=== PATIENT | female | born 2000 | race Caucasian/White ===

== ENCOUNTER 2020-12-14 16:03 | Inpatient (IN) | payer MEDICAID, SELFPAY ==
[~2020-12-14] VITALS: Ht 160 cm; Wt 61.7 kg
[2020-12-14 16:58] VITALS: BP 119/72
--- NOTE | 2020-12-14 17:25 | NUR ---
Pt taken to bed 7.
[2020-12-14 17:40] LABS: BASOPHILS # (AUTO) 0.1 K/uL (0.00-0.22); BASOPHILS % (AUTO) 0.9 % (0.0-2.0); EOSINOPHILS # (AUTO) 0.2 K/uL (0-0.4); EOSINOPHILS % (AUTO) 1.8 % (0.0-4.0); HEMATOCRIT 37.1 % (36-48); HEMOGLOBIN 11.5 g/dL (12.0-16.0); LYMPHOCYTES # (AUTO) 2.3 K/uL (2.5-16.5); LYMPHOCYTES % (AUTO) 20.6 % (20.5-51.1); MEAN CORPUSCULAR HEMOGLOBIN 23 pg (27-31); MEAN CORPUSCULAR HGB CONC 31 g/dL (33-37); MEAN CORPUSCULAR VOLUME 74.4 fL (80-94); MONOCYTES # (AUTO) 0.8 K/uL (0.8-1.0); MONOCYTES % (AUTO) 7.4 % (1.7-9.3); NEUTROPHILS # (AUTO) 7.6 K/uL (1.8-7.7); NEUTROPHILS % (AUTO) 69.3 % (42.2-75.2); PLATELET COUNT (AUTO) 417 K/uL (140-450); RED BLOOD CELL COUNT(AUTO) 4.98 MIL/uL (4.20-5.40); RED CELL DISTRIBUTION WIDTH 19.7 % (11.6-13.7)
[2020-12-14] MEDS ORDERED: MORPHINE SULFATE 2 MG/ML SYR IVP ONE ×2 (17:40→21:05)
[2020-12-14] MEDS ORDERED: NACL 0.9% 1,000 ML IV ONE (17:40)
[2020-12-14] MEDS ORDERED: ONDANSETRON 4 MG/2 ML VIAL IVP ONE (17:40)
[2020-12-14 17:54] LABS: ALBUMIN 4.2 g/dL (3.4-5.0); ANION GAP 14.7 (8-16); CARBON DIOXIDE 25.4 mmol/L (21-32); CREATININE 0.9 mg/dL (0.6-1.3); POTASSIUM 3.1 mmol/L (3.5-5.1); TOTAL BILIRUBIN 0.3 mg/dL (0.0-1.0)
--- NOTE | 2020-12-14 19:14 | NUR ---
Pt report given to BAN RN. Transfer of care at this time.
--- NOTE | 2020-12-14 19:15 | NUR ---
Received report from ALEX Wolfe for continuity of care.
--- NOTE | 2020-12-14 19:20 | NUR ---
20 Y/O FEMALE C/O RLQ ABDOMINAL PAIN, NAUSEA, VOMITING, AND DIARRHEA X1 WEEK. PT HAS ILEOSTOMY, FULL COLECTOMY. PATIENT HAS SOME GENERALIZED BODY SWELLING. PATIENT COMPLAINS OF PAIN OF 8/10 IN THE ABDOMEN THAT FEELS LIKE BURNING AND SQUEEZING. AAOX4. VSS. PMH: CROHNS ALLERGIES: PCN, SULFA
[2020-12-14] MEDS ORDERED: LIDOCAINE MPF 1% 5 ML ONE (19:24)
[2020-12-14] MEDS ORDERED: LIDOCAINE MPF 1% 10 MG/ML VIAL INJ ONE (19:25)
--- NOTE | 2020-12-14 20:14 | NUR ---
PATIENT TO RADIOLOGY VIA W/C
[2020-12-14] MEDS ORDERED: POTASSIUM CHLORIDE 10 MEQ TABER PO ONE (20:45)
--- NOTE | 2020-12-14 20:54 | NUR ---
PATIENT C/O PAIN OF 8/10 IN THE ABDOMEN EVEN WITH MORPHINE. UNRELIEVED. ERMD MADE AWARE
[2020-12-14] MEDS ORDERED: MORPHINE SULFATE 4 MG/ML SYR IVP ONE (23:05)
[2020-12-14] MEDS ORDERED: methylPREDNISolone SS 125 MG/2 ML VIAL IVP ONE (23:05)
--- NOTE | 2020-12-14 23:09 | NUR ---
SWABBED PATIENT. COLLECTED MAYNOR. SENT TO LAB, RECEIVED BY CEASAR, LAB
[2020-12-14] MEDS ORDERED: diphenhydrAMINE 50 MG/ML VIAL IVP ONE (23:35)
--- NOTE | 2020-12-15 00:38 | NUR ---
Patient will be admitted to care of [facility]. Admited to Telemetry. Will go to room 104B. Belongings list completed. Report to ALEX Bell.
[2020-12-15 01:15] VITALS: BP 115/62
--- NOTE | 2020-12-15 01:15 | NUR ---
Admitted from ER TO TELEMETRY UNIT , with chief complaint of ABDOMINAL PAIN, N/V, DIARRHEA FOR 5 DAYS, 20 y/o ,Female, Cooperative, A/OX4. RESPIRATION EVEN AND UNLABORED. IV SALINE LOCK AT THE RIGHT CHEST G24, PATENT AND INTACT. AMBULATORY TO THE , INDEPENDENT. WITH ILEOSTOMY DRAINING LIQUID STOOLS MINIMAL AMOUNT. HEAD TO TOE ASSESSMENT DONE WITH CHARGE NURSE ROSA, SKIN IS INTACT. PAIN IN THE ABDOMEN 2/10, WAS MEDICATED WITH MORPHINE IN ER. WILL MEDICATE PER MD ORDER. oriented to call light, bed, phone,television, bathroom, smoking policy, visiting hours, procedures, ID bracelet on. Belongings list checked.
[2020-12-15] MEDS: MORPHINE SULFATE 2 MG/ML SYR IVP PRN ×3 (02:15→06:34)
--- NOTE | 2020-12-15 02:15 | NUR ---
COMPLAINED OF ABDOMINAL PAIN 03/05, MEDICATED WITH MORPHINE 1 MG. IVP BY CHARGE NURSE ROSA.
--- NOTE | 2020-12-15 03:10 | NUR ---
COMPLAINED THAT THE MORPHINE GIVEN IN ER DOES NOT WORK FOR HER, WANTS DILAUDID. MESSAGED DR. FIERRO REGARDING PATIENT REQUEST.
--- NOTE | 2020-12-15 03:24 | NUR ---
Patient's Plan of Care was discussed and reviewed with TOP STITCHER: MARTA MARTIN.
--- NOTE | 2020-12-15 03:36 | NUR ---
COMPLAINED OF ITCHINESS, STATED THE MORPHINE MAKES ME ITCHY. SEND MESSAGE TO DR. FIERRO.
[2020-12-15 04:00] VITALS: BP 110/65
--- NOTE | 2020-12-15 07:00 | NUR ---
FOLLOW UP WITH PATIENT COMPLAINT TO DR. FIERRO, AWAITING CALL. PATIENT CONDITION REMAIN STABLE. WILL ENDORSE TO AM SHIFT NURSE FOR CONTINUITY OF CARE.
[2020-12-15 07:03] LABS: ALBUMIN 3.7 g/dL (3.4-5.0); ANION GAP 13.9 (8-16); CARBON DIOXIDE 23.3 mmol/L (21-32); CREATININE 0.7 mg/dL (0.6-1.3); POTASSIUM 4.2 mmol/L (3.5-5.1); TOTAL BILIRUBIN 0.4 mg/dL (0.0-1.0)
[2020-12-15 07:09] LABS: BASOPHILS % (AUTO) 0.1 % (0.0-2.0); EOSINOPHILS % (AUTO) 0.1 % (0.0-4.0); HEMATOCRIT 32.9 % (36-48); HEMOGLOBIN 10.2 g/dL (12.0-16.0); LYMPHOCYTES # (AUTO) 0.5 K/uL (2.5-16.5); LYMPHOCYTES % (AUTO) 3.8 % (20.5-51.1); MEAN CORPUSCULAR HEMOGLOBIN 23 pg (27-31); MEAN CORPUSCULAR HGB CONC 31 g/dL (33-37); MEAN CORPUSCULAR VOLUME 73.6 fL (80-94); MONOCYTES # (AUTO) 0.1 K/uL (0.8-1.0); MONOCYTES % (AUTO) 0.8 % (1.7-9.3); NEUTROPHILS # (AUTO) 11.3 K/uL (1.8-7.7); NEUTROPHILS % (AUTO) 95.2 % (42.2-75.2); PLATELET COUNT (AUTO) 350 K/uL (140-450); RED BLOOD CELL COUNT(AUTO) 4.47 MIL/uL (4.20-5.40); RED CELL DISTRIBUTION WIDTH 19.4 % (11.6-13.7); WHITE BLOOD COUNT (AUTO) 11.9 K/uL (4.5-11.0)
--- NOTE | 2020-12-15 07:30 | NUR ---
RECEIVED PT AAOX4. NO SOB NOTED. NO C/O PAIN AT THIS TIME. INSTRUCTED PT TO CALL FOR ASSISTANCE, CALL LIGHT WITHIN REACH, PT VERBALIZED UNDERSTANDING.
[2020-12-15 08:00] VITALS: BP 113/68
[2020-12-15] MEDS ORDERED: MORPHINE SULFATE 2 MG/ML SYR IVP PRN (08:15)
[2020-12-15] MEDS ORDERED: ACETAMINOPHEN 325 MG TAB PO PRN (08:15)
[2020-12-15] MEDS ORDERED: DOCUSATE SODIUM 100 MG GELCAP PO PRN (08:15)
--- NOTE | 2020-12-15 08:53 | NUR ---
PATIENT HAS BEEN SCREENED AND CATEGORIZED HIGH NUTRITION RISK. PATIENT WILL BE SEEN WITHIN 1-2 DAYS OF ADMISSION. 12/15/20-12/16/[address]
[2020-12-15 09:58] LABS: CHOL/HDL RATIO 2.3 (1-4.5); FREE T4 (FREE THYROXINE) 1.08 ng/dL (0.76-1.46); PHOSPHORUS 3.7 mg/dL (2.5-4.9); THYROID STIMULATING HORMONE 0.35 uIU/mL (0.34-3.74)
--- NOTE | 2020-12-15 10:00 | NUR ---
PT ABLE TO CLEAN AND CHANGE HER OWN ILEOSTOMY BAG, DRAINED APPROXIMATELY 100 MLS OF BROWN LIQUID STOOLS.
[2020-12-15] MEDS: NACL 0.9% 1,000 ML IV SCH (10:54)
[2020-12-15] MEDS: HYDROmorphone 1 MG/ML AMP IVP PRN ×3 (11:09→23:11)
--- NOTE | 2020-12-15 11:47 | NUR ---
URINE SPECIMEN COLLECTED AND SENT TO LAB FOR UDS.
[2020-12-15 12:00] VITALS: BP 103/54
--- NOTE | 2020-12-15 12:05 | NUR ---
PT TOLERATING CLEAR LIQUIDS WELL. NO NAUSEA NAD VOMITING NOTED.
[2020-12-15 13:25] LABS: BARBITURATE, URINE NEGATIVE ng/ml (NEG <=200); BENZODIAZEPINE, URINE POSITIVE ng/mL (NEG <=200); CANNABINOID, URINE NEGATIVE ng/mL (NEG <=50); COCAINE, URINE NEGATIVE ng/mL (NEG <=300); OPIATE, URINE POSITIVE ng/mL (NEG <=2000); PHENCYCLIDINE SCREEN,URINE NEGATIVE ng/mL (NEG <=25)
--- NOTE | 2020-12-15 14:13 | NUR ---
12/15/20 RD INITIAL ASSESSMENT COMPLETED PLEASE REFER TO NUTRITION ASSESSMENT UNDER CARE ACTIVITY FOR ESTIMATED NUTRITIONAL NEEDS. 1. CONTINUE CLEAR LIQUID DIET TOLERATED 2. GRADUALLY ADVANCE TO LOW FIBER DIET 3. RECOMMEND ENSURE CLEAR TID 4. PROVIDED NUTRITION EDUCATION FOR CROHN'S DISEASE 5. RD TO FOLLOW-UP 3-5 DAYS, MODERATE RISK JOSIE CABELLO RD
--- NOTE | 2020-12-15 14:46 | NUR ---
DC PLANNIN YRS OLD FEMALE PATIENT WAS ADMITTED FROM HOME WITH A DX OF CROHN'S FLAIR PT HAS A HX OF CHRONS' DISEASE AND COLOSTOMY. PT RECENTLY DISCHARGED FROM [facility] WORK UP WAS DONE THERE WHICH INCLUDED EGD AND CT ABD/ PELVIS. ADMINISTERED IVF, PAIN MEDS AND CONTINUE HOME MEDS. DC PLAN TO GO HOME AND FOLLOW UP WITH PCP OUT PATIENT. CM TO FOLLOW Addendum: 12/16/20 at 1345 by Berenice Wolff RN DC PLANNING: CALLED DEEJAY CORDERO [phone] LEFT A MESSAGE . CM TO FOLLOW Addendum: 12/20/20 at 1022 by Berenice Wolff RN LATE ENTRY 12/19/18 1400 CALLED DEEJAY NORTON SPOKE WITH LINDSEY CHOE UPDATED PT'S CLINICAL AND AWAITING FOR GI RECOMMENDATIONS, SBFT ORDERED. ON PAIN MEDS. AUTH # [id number]. DC PLAN AWAITING FOR SBFT RESULT AND GI RECOMMENDATION. CM TO FOLLOW Addendum: 12/20/20 at 1028 by Berenice Wolff RN DC PLANNING: SBFT NEGATIVE. RIGHT DIVERTING ILEOSTOMY SOFT TISSUES APPEAR NORMAL. PT REFUSED HOME HEALTH, STATED SHE KNOWS HOW TO TAKE CARE OF ILEOSTOMY, DOESN'T NEED ANY HELP AND SHE HAS ALL THE SUPPLIES. STABLE FOR DISCHARGE.
[2020-12-15] MEDS: predniSONE 10 MG TAB PO SCH (15:37)
--- NOTE | 2020-12-15 15:55 | NUR ---
PT RESTING. NO COMPLAINTS MADE. ENDORSED TO DES FOR CONTINUITY OF CARE.
[2020-12-15 16:00] VITALS: BP 109/58
[2020-12-15] MEDS: METOCLOPRAMIDE 10 MG TAB PO SCH (16:30)
[2020-12-15 17:11] LABS: PROTHROMBIN TIME 9.7 secs (10.8-13.4)
--- NOTE | 2020-12-15 19:25 | NUR ---
GAVE REPORT TO REEL STRIPPER NURSE FOR CONTINUITY OF CARE. WILL CONTINUE TO MONITOR.
--- NOTE | 2020-12-15 19:27 | NUR ---
RECEIVED REPORT FROM KAILEE RN. PT AAOX4, WATCHING TV AT PRESENT. NAD NOTED.
[2020-12-15] MEDS: HYDROcodone/APAP 5/325 MG 1 TAB TAB PO PRN (19:56)
[2020-12-15 20:30] VITALS: BP 113/66
[2020-12-15] MEDS: ONDANSETRON 4 MG/2 ML VIAL IVP PRN (23:09)
--- NOTE | 2020-12-15 23:30 | NUR ---
PT W/ REQUEST FOR PAIN MED, PAIN 8/10, IV ZOFRAN GIVEN, IV DILAUDID ATTEMPTED, IV SITE W/ NOTED LEAKAGE, IV SITE INFILTRATED. IV FLUIDS STOPPED, IV CATH D/C'D, 24G CATH REMOVED INTACT FROM R UPPER CHEST WALL. CHARGE NURSE NOTIFIED TO CALL ED MD FOR NEW IV PLACEMENT, PT IS A DIFFICULT STICK. Dx CROHN'S FLAIR UP
[2020-12-15] MEDS: ZOLPIDEM 5 MG TAB PO PRN (23:31)
[2020-12-16] VITALS: BP 112/65
--- NOTE | 2020-12-16 00:09 | NUR ---
NEW IV INSERTED TO LEFT UPPER ARM, 20G, BY SUPERVISOR LAMP SHADES. PT TOLERATED WELL. REQUESTING PAIN MED, DUE TO IV SITE INFILTRATION STATING "I DIDN'T GET ANY OF MY MEDICATION, I AM STILL IN PAIN."
[2020-12-16] MEDS: HYDROmorphone 1 MG/ML AMP IVP PRN ×5 (00:44→19:16)
--- NOTE | 2020-12-16 03:00 | NUR ---
ON ROUNDS PT ASLEEP, VERBALIZED NO C/O PAIN OR DISCOMFORT. RESP REG NON-LABORED.
[2020-12-16 05:20] VITALS: BP 111/58
--- NOTE | 2020-12-16 05:25 | NUR ---
Asymptomatic. VS WNL 111/59, P65, PO2 99%, RR 16 NO RESP DISTRESS. VOICED NO C/O MALAISE, LIGHTHEADEDNESS OR DIZZINESS.
[2020-12-16] MEDS: NACL 0.9% 1,000 ML IV SCH ×2 (06:15→20:25)
[2020-12-16] MEDS: METOCLOPRAMIDE 10 MG TAB PO SCH ×3 (06:16→17:00)
[2020-12-16] MEDS: ONDANSETRON 4 MG/2 ML VIAL IVP PRN (07:05)
--- NOTE | 2020-12-16 07:10 | NUR ---
REPORT TO AM RN. PT MEDICATED FOR PAIN AT 0700. RESTING QUIETLY. ASLEEP AT INTERVALS. NAD NOTED.
[2020-12-16 07:17] LABS: ANION GAP 12.1 (8-16); CARBON DIOXIDE 25.9 mmol/L (21-32); CREATININE 0.6 mg/dL (0.6-1.3)
--- NOTE | 2020-12-16 07:30 | NUR ---
RECEIVED REPORT FROM TRAVEL SERVICE CONSULTANT RN. AOX4, VERBAL, ABLE TO MAKE NEEDS KNOWN. RESPIRATION EVEN AND UNLABORED. IV LFA 20G, PATENT AND INTACT. AMBULATORY, INDEPENDENT. WITH ILEOSTOMY DRAINING LIQUID STOOLS MINIMAL AMOUNT. SKIN IS INTACT. CALL LIGHT WITHIN REACH. WILL CONTINUE TO MONITOR
[2020-12-16 08:00] VITALS: BP 100/64
--- NOTE | 2020-12-16 08:45 | NUR ---
WITH C/O ABD PAIN 11/03. NORCO GIVEN ORDERED. OTHER DUE MEDS GIVEN
[2020-12-16] MEDS: predniSONE 10 MG TAB PO SCH (09:12)
[2020-12-16 09:13] LABS: PHOSPHORUS 3.9 mg/dL (2.5-4.9)
[2020-12-16] MEDS: HYDROcodone/APAP 5/325 MG 1 TAB TAB PO PRN ×2 (09:17→18:27)
--- NOTE | 2020-12-16 11:20 | NUR ---
PT RESTING IN BED. NO C/O PAIN, NO SOB
--- NOTE | 2020-12-16 13:10 | NUR ---
WITH C/O ABD PAIN 01/03, DILAUDID GIVEN ORDERED
--- NOTE | 2020-12-16 15:42 | NUR ---
PT IN BED, NO C/O PAIN, NO SOB.
[2020-12-16 16:00] VITALS: BP 11/59
[2020-12-16 17:45] LABS: BASOPHILS % (AUTO) 0.4 % (0.0-2.0); EOSINOPHILS % (AUTO) 0.3 % (0.0-4.0); HEMATOCRIT 33.3 % (36-48); HEMOGLOBIN 10.3 g/dL (12.0-16.0); LYMPHOCYTES # (AUTO) 1.3 K/uL (2.5-16.5); LYMPHOCYTES % (AUTO) 13.7 % (20.5-51.1); MEAN CORPUSCULAR HEMOGLOBIN 23 pg (27-31); MEAN CORPUSCULAR HGB CONC 31 g/dL (33-37); MEAN CORPUSCULAR VOLUME 74.1 fL (80-94); MONOCYTES # (AUTO) 0.6 K/uL (0.8-1.0); MONOCYTES % (AUTO) 6.6 % (1.7-9.3); NEUTROPHILS # (AUTO) 7.6 K/uL (1.8-7.7); PLATELET COUNT (AUTO) 364 K/uL (140-450); RED BLOOD CELL COUNT(AUTO) 4.49 MIL/uL (4.20-5.40); RED CELL DISTRIBUTION WIDTH 19.2 % (11.6-13.7); WHITE BLOOD COUNT (AUTO) 9.6 K/uL (4.5-11.0)
--- NOTE | 2020-12-16 17:53 | NUR ---
AWAKE IN BED, ABD PAIN 3/10 TOLERABLE, NO RESPIRATORY DISTRESS
--- NOTE | 2020-12-16 19:35 | NUR ---
RECEIVED REPORT FROM AM SHIFT NURSE. PATIENT IS AAOX4 IN BED RESTING. NO S/S OF RESPIRATORY DISTRESS. DENIES PAIN CALL LIGHT WITHIN REACH. IVF OF NS INFUSING AT 50 ML/HR ON THE SAM. ILEOSTOMY ON THE LEFT MID ABDOMEN. WILL CONTINUE TO MONITOR.
[2020-12-16] MEDS: ZOLPIDEM 5 MG TAB PO PRN (20:58)
[2020-12-17] VITALS: BP 101/58
[2020-12-17] MEDS: HYDROmorphone 1 MG/ML AMP IVP PRN ×4 (01:56→18:28)
[2020-12-17] MEDS: NACL 0.9% 1,000 ML IV SCH ×2 (03:35→16:17)
[2020-12-17] MEDS: ONDANSETRON 4 MG/2 ML VIAL IVP PRN (06:19)
--- NOTE | 2020-12-17 07:25 | NUR ---
RECEIVED REPORT FROM PRODUCTION SUPPORT DEVELOPER NURSE FOR CONTINUITY OF CARE. PT IS AWAKE AND ALERT, A&OX4. PT IS ON RA WITH BREATHING UNLABORED. PT IS AMBULATORY INDEPENDENTLY. SKIN IS INTACT, DRY AND WARM. COLOSTOMY BAG IN PLACE ON RIGHT ABDOMEN. IV LEFT UPPER ARM 20 GAUGE INFUSING AT 50 ML/HR. PT IS STABLE. PT STATES 3/10, TOLERABLE. CONTACT PRECAUTIONS PENDING C DIFF RESULTS. CALL LIGHT WITH IN REACH. ALL SAFETY MEASURE IN PLACE. WILL CONTINUE TO MONITOR.
[2020-12-17] MEDS: METOCLOPRAMIDE 10 MG TAB PO SCH ×3 (07:30→16:07)
--- NOTE | 2020-12-17 07:35 | NUR ---
ENDORSED TO AM NURSE FOR CONTINUITY OF CARE. PT IS STABLE.
--- NOTE | 2020-12-17 07:45 | NUR ---
REGLAN NOT GIVEN DUE TO ZOFRAN GIVEN AT 0619.
[2020-12-17 08:30] VITALS: BP 95/54
--- NOTE | 2020-12-17 08:30 | NUR ---
REPORT RECEIVED FROM MAXIME RN, PT AAOX4, SPEAKS CLEARLY, RESP EVEN UNLABORED ON RA, SKIN WARM DRY COLOR WNL, CAP REFILL <3SEC, PIV 20G TO L UA NS AT 50ML/HR, SITE WNL, ABD SOFT, NON DISTENDED, ILEOSTOMY BAG IN PLACE, WITH SML AMT OF BROWN STOOL, PT REPORTS ABD PAIN 01/03, WILL MEDICATE, PLAN OF CARE REVIEWED, ALL SAFETY MEASURES IN PLACE, WILL CONTINUE TO MONITOR.
--- NOTE | 2020-12-17 08:30 | NUR ---
ENDORSED PT TO ALEX ROSE FOR CONTINUITY OF CARE. PT IS STABLE. PLAN OF CARE DISCUSSED.
--- NOTE | 2020-12-17 08:37 | NUR ---
DR FARFAN AT BEDSIDE FOR EVAL
[2020-12-17] MEDS: predniSONE 10 MG TAB PO SCH (08:47)
[2020-12-17] MEDS: HYDROcodone/APAP 5/325 MG 1 TAB TAB PO PRN ×3 (08:52→20:53)
--- NOTE | 2020-12-17 08:54 | NUR ---
PT REPORTS 01/03 ABD PAIN, MEDICATED WITH NORCO, DILAUDID NOT DUE UNTIL 1230, PT DENIES N/V, PREDNISONE GIVEN SCHEDULED, JOHN WELL, PT DENIES ANY OTHER NEEDS AT THIS TIME, CALL PACKER AT BEDSIDE
[2020-12-17] MEDS ORDERED: KETOROLAC 15 MG/ML VIAL IVP SCH (09:20)
[2020-12-17] MEDS ORDERED: DICYCLOMINE HCL LIQUID 10 MG/5 ML UDC PO SCH (09:20)
--- NOTE | 2020-12-17 12:30 | NUR ---
C/O ABD PAIN 810, DILAUDID GIVEN PER PRN ORDER.
[2020-12-17] MEDS: KETOROLAC 15 MG/ML VIAL IVP SCH ×2 (13:00→20:50)
[2020-12-17] MEDS: DICYCLOMINE HCL LIQUID 10 MG/5 ML UDC PO SCH ×3 (13:00→20:47)
--- NOTE | 2020-12-17 13:30 | NUR ---
PT REPORTS FEEDING BETTER, RESTING QUIETLY IN NO ACUTE DISTRESS, DENIES N/V, NO EMESIS TODAY
[2020-12-17 16:00] VITALS: BP 102/62
[2020-12-17] MEDS ORDERED: CRUSHER, PILL MC ONE (16:05)
--- NOTE | 2020-12-17 16:14 | NUR ---
PT REFUSES BENTYL, STATES IT DID NOT HELP LAST TIME.
--- NOTE | 2020-12-17 16:15 | NUR ---
C/O RETURNING ABD PAIN, 01/03, JOSEMANUELID NOT DUE UNTIL 1829, PT AGREES TO TAKE NORCO FOR NOW.
--- NOTE | 2020-12-17 18:28 | NUR ---
PATIENT COMPLAINED OF 8/10 ABD PAIN. ADMINISTERED PRN PAIN MEDICATIONS PER MD ORDERED.
--- NOTE | 2020-12-17 19:33 | NUR ---
RECEIVED REPORT FROM AM RN. PATIENT IN BED RESTING, NO SOB NOTED. IVF OF NS AT 50 ML/HR INFUSING WELL ON THE RIGHT UPPER ARM. CALL LIGHT WITHIN REACH. WILL CONTINUE TO MONITOR.
[2020-12-17] MEDS: ZOLPIDEM 5 MG TAB PO PRN (20:58)
--- NOTE | 2020-12-17 20:59 | NUR ---
meds given as ordered.
[2020-12-18] VITALS: BP 109/70
[2020-12-18] MEDS: NACL 0.9% 1,000 ML IV SCH ×2 (00:11→20:25)
[2020-12-18] MEDS: HYDROmorphone 1 MG/ML AMP IVP PRN ×4 (00:13→19:39)
--- NOTE | 2020-12-18 03:38 | NUR ---
PATIENT IS SLEEPING. NO SOB NOTED. CALL LIGHT WITHIN REACH.
[2020-12-18] MEDS: KETOROLAC 15 MG/ML VIAL IVP SCH ×3 (05:00→20:26)
[2020-12-18] MEDS: METOCLOPRAMIDE 10 MG TAB PO SCH ×3 (07:00→17:04)
--- NOTE | 2020-12-18 07:10 | NUR ---
RECEIVE REPORT FROM ANVIL WORKER NURSE FOR CONTINUITY OF CARE. PATIENT AWAKE. BREATHING IS EVEN AND UNLABORED. ALL SAFETY MEASURES IN PLACE. WILL CONTINUE TO MONITOR.
--- NOTE | 2020-12-18 07:13 | NUR ---
ENDORSED TO AM NURSE FOR CONTINUITY OF CARE. PATIENT IN STABLE CONDITION.
[2020-12-18 08:00] VITALS: BP 94/59
[2020-12-18] MEDS: DICYCLOMINE HCL LIQUID 10 MG/5 ML UDC PO SCH ×4 (10:17→20:24)
--- NOTE | 2020-12-18 10:17 | NUR ---
PATIENT UP IN BED. ROUTINE MEDICATION GIVEN. ALL SAFETY MEASURES IN PLACE. WILL CONTINUE TO MONITOR.
[2020-12-18] MEDS: predniSONE 10 MG TAB PO SCH (10:18)
[2020-12-18] MEDS: HYDROcodone/APAP 5/325 MG 1 TAB TAB PO PRN ×2 (10:19→18:01)
--- NOTE | 2020-12-18 10:29 | NUR ---
PATIENT IN BED. ROUTINE MEDICATIONS GIVEN. SAFETY MEASURES IN PLACE. WILL CONTINUE TO MONITOR.
--- NOTE | 2020-12-18 12:12 | NUR ---
PATIENT IN BED. PATIENT HAVING LUNCH. ALL SAFETY MEASURES IN PLACE. WILL CONTINUE TO MONITOR.
--- NOTE | 2020-12-18 14:56 | NUR ---
PATIENT UP IN BED. PATIENT TALKING ON PHONE ALL SAFETY MEASURES IN PLACE.
[2020-12-18 16:00] VITALS: BP 106/60
--- NOTE | 2020-12-18 16:33 | NUR ---
PATIENT AWAKE. BREATHING EVEN AND UNLABORED. ALL SAFETY MEASURES IN PLACE. WILL CONTINUE TO MONITOR.
--- NOTE | 2020-12-18 18:39 | NUR ---
PATIENT IN BED. NO ACUTE DISTRESS NOTED. ALL SAFETY MEASURES IN PLACE. WILL CONTINUE TO MONITOR.
--- NOTE | 2020-12-18 19:10 | NUR ---
REPORT GIVEN FOR CONTINUITY OF CARE TO NIGHT NURSE. PATIENT STABLE. ALL SAFETY MEASURES IN PLACE.
--- NOTE | 2020-12-18 19:10 | NUR ---
RECEIVED REPORT FROM AM NURSE. PATIENT IN BED RESTING IN NO ACUTE DISTRESS. IVF NS RUNNING AT 50 ML. BED IN LOW POSITION. CALL LIGHT ON EASY REACH.
--- NOTE | 2020-12-18 20:24 | NUR ---
ADMINISTERED SCHEDULED MEDS PER ME ORDERED.
[2020-12-18] MEDS: ZOLPIDEM 5 MG TAB PO PRN (21:54)
[2020-12-19] VITALS: BP 106/66
[2020-12-19] MEDS: HYDROcodone/APAP 5/325 MG 1 TAB TAB PO PRN ×4 (00:16→18:43)
[2020-12-19] MEDS: HYDROmorphone 1 MG/ML AMP IVP PRN ×4 (01:41→20:28)
--- NOTE | 2020-12-19 04:14 | NUR ---
PATIENT ASLEEP, RESPIRATION EVEN UNLABORED. AFEBRILE. KEPT CLEAN, DRY AND COMFORTABLE.
[2020-12-19 08:00] VITALS: BP 103/63
[2020-12-19] MEDS: DICYCLOMINE HCL LIQUID 10 MG/5 ML UDC PO SCH ×4 (08:14→20:53)
[2020-12-19] MEDS: predniSONE 10 MG TAB PO SCH (08:15)
[2020-12-19] MEDS: METOCLOPRAMIDE 10 MG TAB PO SCH ×3 (08:17→16:25)
[2020-12-19] MEDS: NACL 0.9% 1,000 ML IV SCH (08:25)
--- NOTE | 2020-12-19 11:15 | NUR ---
ENDORSED PT TO ALEX SWARTZ FOR CONTINUITY OF CARE
--- NOTE | 2020-12-19 11:15 | NUR ---
RECEIVED REPORT FROM ARTISAN PLASTERER NURSE FOR CONTINUITY OF CARE. PT IS STABLE AT THIS TIME. PLAN OF CARE DISCUSSED. PT IS A&OX4. ON RA WITH BREATHING UNLABORED. ILEOSTOMY BAG IN PLACE. PT IS CONTINENT OF URINE. SKIN IS WARM, DRY, AND INTACT. IV IS IN THE LEFT UPPER ARM 20 GAUGE RUNNING NS AT 50 ML PER HOUR PER ORDER. CONTACT PRECAUTIONS FOR PENDING C DIFF.
--- NOTE | 2020-12-19 12:23 | NUR ---
PT STATES SHE HAS PAIN AT A SCALE OF 6/10 IN THE ABDOMEN. PT WAS GIVEN NORCO FOR PAIN ORDERED. WILL MONITOR PAIN. PT DENIES N/V AT THIS TIME. PT DENIED DICYCLOMINE MEDICATION DUE AT 1300 BECAUSE SHE STATED "IT IS GOING TO HURT MY STOMACH AFTER DRINKING ALL THE LIQUID FOR THE XRAY." PT CONSUMED THE CONTRAST FOR THE SMALL BOWEL FOLLOW THROUGH. EDUCATED PT ON IMPORTANCE OF MEDICATION AND PT STILL REFUSED.
--- NOTE | 2020-12-19 14:26 | NUR ---
PT STATES PAIN AT A SCALE OF 8/10 ON THE RIGHT SIDE OF THE ABD. PT STATES THE PAIN SHARP IN CHARACTERISTIC. BP IS PRIOR TO ADMINISTRATION OF MEDICATION. WILL MONITOR PAIN.
[2020-12-19 16:00] VITALS: BP 105/62
--- NOTE | 2020-12-19 16:28 | NUR ---
PT REFUSED DICYCLOMINE AGAIN. MEDICATION EDUCATION WAS PROVIDED ON IMPORTANCE OF MED AND PT STILL REFUSED.
[2020-12-19 16:46] LABS: BASOPHILS # (AUTO) 0.1 K/uL (0.00-0.22); BASOPHILS % (AUTO) 0.5 % (0.0-2.0); EOSINOPHILS % (AUTO) 0.4 % (0.0-4.0); HEMATOCRIT 36.8 % (36-48); HEMOGLOBIN 11.6 g/dL (12.0-16.0); LYMPHOCYTES # (AUTO) 1.2 K/uL (2.5-16.5); LYMPHOCYTES % (AUTO) 12.7 % (20.5-51.1); MEAN CORPUSCULAR HEMOGLOBIN 23 pg (27-31); MEAN CORPUSCULAR HGB CONC 32 g/dL (33-37); MEAN CORPUSCULAR VOLUME 73.7 fL (80-94); MONOCYTES # (AUTO) 0.5 K/uL (0.8-1.0); NEUTROPHILS # (AUTO) 7.9 K/uL (1.8-7.7); NEUTROPHILS % (AUTO) 81.4 % (42.2-75.2); PLATELET COUNT (AUTO) 397 K/uL (140-450); RED CELL DISTRIBUTION WIDTH 18.9 % (11.6-13.7); WHITE BLOOD COUNT (AUTO) 9.7 K/uL (4.5-11.0)
[2020-12-19 17:15] LABS: ANION GAP 15.5 (8-16); CARBON DIOXIDE 20.8 mmol/L (21-32); CREATININE 0.7 mg/dL (0.6-1.3); POTASSIUM 4.3 mmol/L (3.5-5.1)
[2020-12-19 17:20] LABS: MAGNESIUM 1.9 mg/dL (1.8-2.4); PHOSPHORUS 3.9 mg/dL (2.5-4.9)
--- NOTE | 2020-12-19 18:43 | NUR ---
PT STATES SHE HAS PAIN AT A SCALE OF 6/10 IN THE ABDOMEN. PT WAS GIVEN NORCO ORDERED. WILL MONITOR PAIN. PT STABLE AT THIS TIME. NO DISTRESS NOTED.
--- NOTE | 2020-12-19 19:10 | NUR ---
ENDORSED PT TO GAS MAKER NURSE FOR CONTINUITY OF CARE. PT IS STABLE AT THIS TIME. PLAN OF CARE DISCUSSED.
--- NOTE | 2020-12-19 19:30 | NUR ---
RECEIVED REPORT FROM RN DAYSHIFT NURSE AT BEDSIDE FOR CONTINUITY OF CARE, PT IN STABLE CONDITION. PT SITTING UP IN BED AOX4 SHE HAS IV SITE LEFT UPPER ARM INTACT AND RUNNING N/S AT 50MLS/HR. NO C/O VOICED BY PT AT THIS TIME ALL UNIVERSAL FALLS PRECAUTIONS IN PLACE.
[2020-12-19 20:00] VITALS: BP 117/90
--- NOTE | 2020-12-19 20:00 | NUR ---
PT SITTING UP IN BED V/S FOLLOWS: T 98.4 P 107 R 18 B/P 117/90 02 93% ON ROOM AIR.
--- NOTE | 2020-12-19 20:30 | NUR ---
PT C/O OF SEVERE PAIN IN ABDOMEN, SHE RECEIVED DILAUDID IVP. PT DECLINED ORDERED BENTYL ORAL LIQUID. WILL MONITOR FOR PAIN RELIEF. UNIVERSAL FALLS PRECAUTIONS IN PLACE.
[2020-12-19] MEDS: ZOLPIDEM 5 MG TAB PO PRN (20:51)
--- NOTE | 2020-12-19 21:00 | NUR ---
PT REQUESTED AND WAS GIVEN REQUESTED AMBIEN FOR INSOMNIA.
[2020-12-19] MEDS: LORazepam 2 MG/ML VIAL IM/IVP PRN (22:47)
--- NOTE | 2020-12-19 23:00 | NUR ---
PT GIVEN REQUESTED ATIVAN FOR C/O OF ANXIETY.
[2020-12-20] MEDS: HYDROmorphone 1 MG/ML AMP IVP PRN ×4 (02:50→23:28)
--- NOTE | 2020-12-20 03:00 | NUR ---
PT IN BED AWAKE WITH C/O OF SEVERE PAIN GIVEN DILAUDID AND ATIVAN IVP FOR C/O OF ANXIETY.
[2020-12-20] MEDS: LORazepam 2 MG/ML VIAL IM/IVP PRN ×5 (03:01→21:39)
[2020-12-20] MEDS: NACL 0.9% 1,000 ML IV SCH (04:25)
[2020-12-20] MEDS: HYDROcodone/APAP 5/325 MG 1 TAB TAB PO PRN ×2 (07:15→20:30)
[2020-12-20] MEDS: METOCLOPRAMIDE 10 MG TAB PO SCH ×3 (07:16→16:59)
[2020-12-20] MEDS: predniSONE 10 MG TAB PO SCH (10:12)
[2020-12-20] MEDS: DICYCLOMINE HCL LIQUID 10 MG/5 ML UDC PO SCH ×4 (10:14→20:32)
--- NOTE | 2020-12-20 14:59 | NUR ---
12/20/20 RD INITIAL ASSESSMENT COMPLETED PLEASE REFER TO NUTRITION ASSESSMENT UNDER CARE ACTIVITY FOR ESTIMATED NUTRITIONAL NEEDS. 1. CONTINUE MECHANICAL SOFT DIET TOLERATED 2. PROVIDE A LOW FIBER DIET 3. RD TO FOLLOW-UP 3-5 DAYS, MODERATE RISK JOSIE CABELLO RD
[2020-12-20 16:00] VITALS: BP 107/71
--- NOTE | 2020-12-20 21:39 | NUR ---
PATIENT COMPLAINED OF BEING ANXIOUS, ATIVAN GIVEN ORDERED.
[2020-12-21] VITALS: BP 118/75
[2020-12-21] MEDS: NACL 0.9% 1,000 ML IV SCH ×2 (00:25→06:55)
[2020-12-21] MEDS: LORazepam 2 MG/ML VIAL IM/IVP PRN ×4 (01:40→15:32)
[2020-12-21] MEDS: HYDROmorphone 1 MG/ML AMP IVP PRN ×3 (04:08→15:36)
[2020-12-21] MEDS: ONDANSETRON 4 MG/2 ML VIAL IVP PRN ×2 (04:17→15:32)
[2020-12-21] MEDS: METOCLOPRAMIDE 10 MG TAB PO SCH ×2 (06:50→11:30)
[2020-12-21 07:30] VITALS: BP 116/73
--- NOTE | 2020-12-21 07:50 | NUR ---
RECEIVED PT FROM [facility]. PT ASLEEP IN BED, WAKES UP TO NAME. IV WNL. PT HAS NO COMPLAINTS AT THIS TIME. AOX4, ABLE TO COMMUNICATE NEEDS. WILL CONT MONITORING.
--- NOTE | 2020-12-21 07:51 | NUR ---
ENDORSED TO AM NURSE FOR CONTINUITY OF CARE. PT IS STABLE.
[2020-12-21] MEDS: HYDROcodone/APAP 5/325 MG 1 TAB TAB PO PRN (08:56)
[2020-12-21] MEDS: predniSONE 10 MG TAB PO SCH (08:57)
[2020-12-21] MEDS: DICYCLOMINE HCL LIQUID 10 MG/5 ML UDC PO SCH ×2 (08:57→14:31)
[2020-12-21] MEDS ORDERED: ACET-5629 PO (10:13)
[2020-12-21] MEDS ORDERED: PRED10TA5 PO (10:13)
[2020-12-21] MEDS ORDERED: METO-485 PO (10:13)
[2020-12-21] MEDS ORDERED: ONDA4TAB PO (10:13)
--- NOTE | 2020-12-21 16:22 | NUR ---
PATIENT HAS DC ORDER BUT WILL NOT BE PICKED UP UNTIL 1800/1830. PT REMAINS IN ROOM, STILL C/O PAIN, NAUSEA, AND ANXIETY. PRN MEDS HAVE BEEN GIVEN.VS ARE STABLE.
== END 2020-12-21 17:55 | disposition home or self-care (01) | DRG 245 ==
LOC: MED 16:03 → EDBD 16:03 → MTU 23:16
PROVIDERS: ADMIT Family Medicine; ATTEND Family Medicine
DX: K50.90 Crohn's disease, unspecified, without complications (principal); D50.9 Iron deficiency anemia, unspecified; E87.6 Hypokalemia; F19.10 Other psychoactive substance abuse, uncomplicated; N20.0 Calculus of kidney; F41.9 Anxiety disorder, unspecified; N83.9 Noninflammatory disorder of ovary, fallopian tube and broad ligament, unspecified; R73.9 Hyperglycemia, unspecified; Z20.822 Contact with and (suspected) exposure to COVID-19; Z90.49 Acquired absence of other specified parts of digestive tract; Z88.0 Allergy status to penicillin; Z88.2 Allergy status to sulfonamides; Z79.899 Other long term (current) drug therapy; Z83.79 Family history of other diseases of the digestive system; Z93.2 Ileostomy status
CPT/HCPCS: 36415; 71045; 74250; 80048; 80053; 80305; 82150; 83036; 83690; 83735; 83880; 84100; 84439; 84443; 84484; 84703; 85025; 85610; 85730; 87070; 87081; 89055; 93005; 96374; 96375; 96376; 99285; J1170; J1200; J1885; J2001; J2060; J2270; J2405; J2930; J7512; J8597; Q0163

== ENCOUNTER 2020-12-27 13:57 | Emergency (ER) | payer MEDICAID, SELFPAY ==
[~2020-12-27] VITALS: Ht 160 cm; Wt 59.0 kg
[~2020-12-27 13:57] MED LIST: ACET-5629 PO; METO-485 PO; ONDA4TAB PO; PRED10TA5 PO
[2020-12-27 14:12] VITALS: BP 114/71
--- NOTE | 2020-12-27 14:19 | NUR ---
TENT1
--- NOTE | 2020-12-27 14:19 | NUR ---
HAND ON URINE CUP
[2020-12-27] MEDS ORDERED: KETOROLAC 30 MG/ML VIAL IM ONE (14:30)
[2020-12-27] MEDS ORDERED: DICYCLOMINE 20 MG/2 ML VIAL IM ONE ×2 (14:30→16:50)
[2020-12-27] MEDS ORDERED: ONDANSETRON 4 MG ODT PO ONE (14:30)
[2020-12-27 15:01] LABS: BASOPHILS # (AUTO) 0.2 K/uL (0.00-0.22); BASOPHILS % (AUTO) 1.6 % (0.0-2.0); EOSINOPHILS # (AUTO) 0.1 K/uL (0-0.4); EOSINOPHILS % (AUTO) 0.5 % (0.0-4.0); HEMATOCRIT 37.8 % (36-48); HEMOGLOBIN 11.8 g/dL (12.0-16.0); LYMPHOCYTES # (AUTO) 0.7 K/uL (2.5-16.5); LYMPHOCYTES % (AUTO) 6.6 % (20.5-51.1); MEAN CORPUSCULAR HEMOGLOBIN 23 pg (27-31); MEAN CORPUSCULAR HGB CONC 31 g/dL (33-37); MEAN CORPUSCULAR VOLUME 73.4 fL (80-94); MONOCYTES # (AUTO) 0.2 K/uL (0.8-1.0); MONOCYTES % (AUTO) 1.6 % (1.7-9.3); NEUTROPHILS # (AUTO) 10.1 K/uL (1.8-7.7); NEUTROPHILS % (AUTO) 89.7 % (42.2-75.2); PLATELET COUNT (AUTO) 444 K/uL (140-450); RED BLOOD CELL COUNT(AUTO) 5.15 MIL/uL (4.20-5.40); RED CELL DISTRIBUTION WIDTH 19.3 % (11.6-13.7); WHITE BLOOD COUNT (AUTO) 11.3 K/uL (4.5-11.0)
[2020-12-27 15:22] LABS: ALBUMIN 3.5 g/dL (3.4-5.0); CARBON DIOXIDE 24.1 mmol/L (21-32); CREATININE 0.7 mg/dL (0.6-1.3); POTASSIUM 4.1 mmol/L (3.5-5.1); TOTAL BILIRUBIN 0.3 mg/dL (0.0-1.0)
--- NOTE | 2020-12-27 16:39 | NUR ---
PATIENT AMBULATED TO BED 12
[2020-12-27] MEDS ORDERED: ONDANSETRON 4 MG ODT ONE (16:51)
[2020-12-27] MEDS: KETOROLAC 30 MG/ML VIAL IM ONE (16:55)
[2020-12-27] MEDS: DICYCLOMINE 20 MG/2 ML VIAL IM ONE (16:55)
[2020-12-27] MEDS: ONDANSETRON 4 MG ODT PO ONE (16:56)
--- NOTE | 2020-12-27 16:57 | NUR ---
20 Y/O FEMALE C/O RLQ ABD PAIN8/10 DESCRIBES CRAMPING X3DAYS. PT STATES +N/-V. PT STATES SHE TOOK BENTYL AND ZOFRAN X5HRS PRIOR TO ARRIVAL WITH NO RELIEF OF SYMPTOMS. DENIES FEVER/CHILLS. ABDOMEN IS SOFT, ROUND, BOWEL SOUNDS ACTIVE X4, STOOL PRESENT IN BAG. PMH: CROHN'S DISEASE, RIGHT OSTOMY ALLERGIES: PCN, [place], AND SULFA
[2020-12-27] MEDS: fentaNYL citrate 0.05 MG/ML VIAL NS ONE (17:20)
[2020-12-27] MEDS ORDERED: [UNRECOGNIZED DRUG - CODE] PO (17:52)
[2020-12-27] MEDS ORDERED: METO-485 PO (17:56)
[2020-12-27] MEDS ORDERED: PHE25S RC (18:07)
[2020-12-27 19:00] LABS: APPEARANCE,URINE CLEAR (CLEAR); BILIRUBIN,URINE NEGATIVE (NEGATIVE); BLOOD, URINE TRACE-I (NEGATIVE); COLOR,URINE YELLOW (YELLOW); LEUKOCYTE ESTERASE ,URINE TRACE (NEGATIVE); NITRITE, URINE NEGATIVE (NEGATIVE); PH,URINE 6.5 (5.0-9.0); UGLUCOSE NEGATIVE (NEGATIVE)
[2020-12-27 19:06] LABS: BARBITURATE, URINE NEGATIVE ng/ml (NEG <=200); BENZODIAZEPINE, URINE POSITIVE ng/mL (NEG <=200); CANNABINOID, URINE NEGATIVE ng/mL (NEG <=50); COCAINE, URINE NEGATIVE ng/mL (NEG <=300); OPIATE, URINE POSITIVE ng/mL (NEG <=2000); PHENCYCLIDINE SCREEN,URINE NEGATIVE ng/mL (NEG <=25)
[2020-12-27 20:16] LABS: RBC,URINE 0-5 /HPF (0-5)
== END 2020-12-27 18:19 | disposition home or self-care (01) ==
LOC: MED 13:57
DX: R11.2 Nausea with vomiting, unspecified (principal); R10.9 Unspecified abdominal pain; K50.90 Crohn's disease, unspecified, without complications; Z88.0 Allergy status to penicillin; Z91.018 Allergy to other foods; Z79.899 Other long term (current) drug therapy; Z98.890 Other specified postprocedural states
CPT/HCPCS: 36415; 80053; 80305; 81001; 81025; 83690; 85025; 87086; 99283; J3010; Q0162; J0500